=== PATIENT | male | born 1970 | race African-American/Black ===

== ENCOUNTER 2018-03-15 12:33 | Emergency (ER) | payer SELFPAY ==
--- NOTE | 2018-03-15 13:11 | PHYS DOC ---
Adult General Chief Complaint Chief Complaint: SHORTNESS OF BREATH HPI HPI 48-year-old male presents with 4 day history of sore throat and shortness of breath. The patient feels as though his throat is swollen. He said is very difficult to eat food or drink fluids. He also thinks it might be getting somewhat difficult to breathe. Oxygen saturation is normal. The patient denies fever or chills. He has had a recent exposure presents with tonsillitis. The patient denies any allergies. He is also had a cough with dark sputum. The patient is a smoker. Review of Systems Review of Systems Constitutional: Denies fever or chills [] Eyes: Denies change in visual acuity, redness, or eye pain [] HENT: sore throat [] Respiratory: shortness of breath [] Cardiovascular: No additional information not addressed in HPI [] GI: Denies abdominal pain, nausea, vomiting, bloody stools or diarrhea [] : Denies dysuria or hematuria [] Musculoskeletal: Denies back pain or joint pain [] Integument: Denies rash or skin lesions [] Neurologic: Denies headache, focal weakness or sensory changes [] Endocrine: Denies polyuria or polydipsia [] All other systems were reviewed and found to be within normal limits, except as documented in this note. Physical Exam Physical Exam Constitutional: Well developed, well nourished, no acute distress, non-toxic appearance. [] HENT: Normocephalic, atraumatic, bilateral external ears normal, oropharynx moist, no oral exudates, nose normal. [] Eyes: PERRLA, EOMI, conjunctiva normal, no discharge. [] Neck: Significantly swollen anterior cervical lymph nodes, worse on the left. Erythematous posterior pharynx, no exudate seen [] Cardiovascular:Heart rate regular rhythm, no murmur [] Lungs & Thorax: Decreased breath sounds bilaterally[] Abdomen: Bowel sounds normal, soft, no tenderness, no masses, no pulsatile masses. [] Skin: Warm, dry, no erythema, no rash. [] Back: No tenderness, no CVA tenderness. [] Extremities: No tenderness, no cyanosis, no clubbing, ROM intact, no edema. [] Neurologic: Alert and oriented X 3, normal motor function, normal sensory function, no focal deficits noted. [] Psychologic: Affect normal, judgement normal, mood normal. [] EKG EKG Sinus tachycardia, rate 106, normal axis, no ST elevations or depressions.[] Radiology/Procedures Radiology/Procedures CHEST PA LATERAL Clinical indications: Cough with short of breath and fever x 4 days COMPARISON: None available. Findings: No acute lung infiltrate or pleural effusion or pulmonary edema or lung mass or pneumothorax is seen. The heart size, pulmonary vasculature, mediastinum and both jan are unremarkable. The osseous structures appear intact. Impression: No acute radiographic abnormality is seen. Electronically signed by: Ty Johnson MD (03/15/2018 1:43 PM) [facility][] Course & Med Decision Making Course & Med Decision Making Pertinent Labs and Imaging studies reviewed. (See chart for details) The patient's rapid strep was positive. Given his significant swelling, I will treat him with 125 of Solu-Medrol in addition to 2 g of Rocephin in the ED. I will then discharge him with a prescription for penicillin V. His labs are significant for an elevated white count. [] Dragon Disclaimer Dragon Disclaimer This electronic medical record was generated, in whole or in part, using a voice recognition dictation system. Departure Departure: Referrals: PCP,UNKNOWN (PCP) OBED HERNANDEZ DO Mar 15, 2018 13:11
[2018-03-15] MEDS ORDERED: IV NORMAL SALINE 1,000ML 1,000 ML IV ONE (13:15)
[2018-03-15 13:43] LABS: BASO % 0 % (0-3); CALCIUM 8.9 mg/dL (8.5-10.1); CREATININE 1.3 mg/dL (0.7-1.3); EOS # 0.4 x10^3/uL (0.0-0.7); EOS % 3 % (0-3); GFR 58.4; HEMATOCRIT 40.8 % (39.0-53.0); HEMOGLOBIN 13.8 g/dL (13.0-17.5); LYMPH # 1.7 x10^3/uL (1.0-4.8); LYMPH % 11 % (24-48); MEAN CORPUSCULAR HEMOGLOBIN 33 pg (25-35); MEAN CORPUSCULAR HGB CONC 34 g/dL (31-37); MEAN CORPUSCULAR VOLUME 96 fL (79-100); MONO # 1.4 x10^3/uL (0.0-1.1); MONO % 9 % (0-9); NEUT # 11.9 x10^3uL (1.8-7.7); NEUT % 77 % (31-73); PLATELET COUNT 293 x10^3/uL (140-400); POTASSIUM 3.4 mmol/L (3.5-5.1); RED BLOOD COUNT 4.26 x10^6/uL (4.30-5.70); WHITE BLOOD COUNT 15.4 x10^3/uL (4.0-11.0)
[2018-03-15] MEDS ORDERED: methylPREDNISolone SOD SUCC PF 125 MG/2 ML VIAL. IV ONE (13:45)
[2018-03-15] MEDS ORDERED: cefTRIAXone IV Push 1 GM VIAL. IVP ONE (13:45)
--- NOTE | 2018-03-15 13:46 | RAD ---
CHEST PA LATERAL Clinical indications: Cough with short of breath and fever x 4 days COMPARISON: None available. Findings: No acute lung infiltrate or pleural effusion or pulmonary edema or lung mass or pneumothorax is seen. The heart size, pulmonary vasculature, mediastinum and both jan are unremarkable. The osseous structures appear intact. Impression: No acute radiographic abnormality is seen. Electronically signed by: Ty Johnson MD (03/15/2018 1:43 PM) [facility]
--- NOTE | 2018-03-15 13:48 | EKG ---
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
[2018-03-15 14:10] VITALS: BP 200/126
[2018-03-15 14:21] LABS: % BANDS 6 % (0-9); % SEGS 79 % (35-66)
[2018-03-15 14:22] LABS: % BASOS 1 % (0-3); % EOS 1 % (0-5); % LYMPHS 10 % (24-48); % MONOS 3 % (0-10); PLT ESTIMATE ADEQUATE (ADEQUATE)
[2018-03-15] MEDS ORDERED: PENI500T PO (14:22)
== END 2018-03-15 14:29 | disposition home or self-care (01) ==
LOC: ER 12:33
DX: J02.0 Streptococcal pharyngitis (principal); D72.829 Elevated white blood cell count, unspecified
CPT/HCPCS: 36415; 71046; 80048; 85007; 85025; 87880; 93005; 96374; 96375; 99285; J0696; J2930; J7030

== ENCOUNTER 2020-08-05 08:31 | Emergency (ER) | payer OTHER ==
[~2020-08-05] VITALS: Ht 172.7 cm; Wt 115.9 kg
[~2020-08-05 08:31] MED LIST: PENI500T PO
--- NOTE | 2020-08-05 08:47 | PHYS DOC ---
Past History Past Medical History: Diabetes, High Cholesterol, Hypertension Past Surgical History: No Surgical History Alcohol Use: Rarely Drug Use: Cocaine Adult General Chief Complaint Chief Complaint: FATIGUE HPI HPI Patient is a 50-year-old male who presents for fatigue. This was first noticed 1 week ago without any known inciting event or trauma. Nothing known makes better or worse. Patient denies being in any pain, no fevers, no chills, no chest pain, no shortness of breath, no abdominal pain, no changes in bladder or bowel function. He is being treated for diabetes with Metformin, states his sugars when intermittently checked have been fine. Otherwise has been taking all other medications for blood pressure and hypercholesterol without issues. Denies any recent travel or COVID-19 contacts. No focal neurologic deficits noted Review of Systems Review of Systems Fourteen body systems of review of systems have been reviewed. See HPI for pertinent positives and negative responses, other driver all other systems are negative, non-pertinent or non-contributory Allergies Allergies Allergies Coded Allergies Type Severity Reaction Last Updated Verified No Known Drug Allergies 03/15/18 No Physical Exam Physical Exam Constitutional: Well developed, well nourished, no acute distress, non-toxic appearance. Appears fatigued HENT: Normocephalic, atraumatic, bilateral external ears normal, oropharynx moist, no oral exudates, nose normal. Eyes: PERRLA, EOMI, conjunctiva normal, no discharge. Neck: Normal range of motion, no tenderness, supple, no stridor. Cardiovascular: Heart rate regular, sinus rhythm, no murmurs rubs or gallops Lungs & Thorax: Bilateral breath sounds clear to auscultation Abdomen: Bowel sounds normal, soft, no tenderness, no masses, no pulsatile masses. Nonsurgical abdomen, no peritoneal signs Skin: Warm, dry, no erythema, no rash. Back: No tenderness, no CVA tenderness. Extremities: No tenderness, no cyanosis, no clubbing, ROM intact, no edema. Neurologic: Alert and oriented X 3, grossly normal motor & sensory function, no focal deficits noted. Psychologic: Affect normal, judgement normal, mood normal. Current Patient Data Vital Signs Vital Signs Date Time Temp Pulse Resp B/P (MAP) Pulse Ox O2 Delivery O2 Flow Rate FiO2 08/05/20 09:04 97.9 88 18 165/87 (113) 100 EKG EKG EKG ordered and interpreted by myself at 0850 hrs. this sinus rhythm at 67 bpm, unremarkable intervals, no axis deviation, no ischemic findings, no STEMI Radiology/Procedures Radiology/Procedures PROCEDURE: CHEST AP ONLY CHEST AP ONLY History: Fatigue, cough Comparison: March 15, 2018 Findings: Single view of the chest is submitted. There is no infiltrate, pneumothorax, or effusion. The pericardial cardiac silhouette is within normal limits in size. Impression: 1. There is no radiographic evidence of acute cardiopulmonary disease. Electronically signed by: Cole Rivas MD (08/05/2020 9:16 AM) [facility] Heart Score HEART Score for Chest Pain: HEART Score for Chest Pain Response (Comments) Value History Slighlty/Non-Suspicious 0 ECG Normal 0 Age >45 - < 65 1 Risk Factors >3 Risk Factors or Hx CAD 2 Troponin < Normal Limit 0 Total 3 Risk Factors: Risk Factors: DM, Current or recent (<one month) smoker, HTN, HLP, family history of CAD, obesity. Risk Scores: Risk Factors: DM, Current or recent (<one month) smoker, HTN, HLP, family history of CAD, obesity. Course & Med Decision Making Course & Med Decision Making Pertinent Labs and Imaging studies reviewed. (See chart for details) [] Dragon Disclaimer Dragon Disclaimer This electronic medical record was generated, in whole or in part, using a voice recognition dictation system. Departure Departure: Impression: Primary Impression: Fatigue Additional Impression: Rhinorrhea Disposition: 01 DC HOME SELF CARE/HOMELESS Condition: STABLE Referrals: ORLANDO BRUNNER (PCP) Patient Instructions: Fatigue Additional Instructions: As discussed prior to ER departure, please call your primary care physician to schedule outpatient follow-up within upcoming 3 to 7 days time for repeat evaluation As discussed, I have low suspicion for any concerning pathology based on today's comprehensive ER work-up Nonetheless, if any concerning signs or symptoms arise prior to outpatient follow-up please do not hesitate to come back for repeat evaluation and continued diagnostic work-up It was a pleasure to take care of you and I wish you a speedy recovery Scripts Cetirizine Hcl (ZYRTEC) 10 Mg Tablet 1 TAB PO DAILY for rhinorrhea, #30 TAB 2 Refills Prov: DAGOBERTO DOUGLAS DO 08/05/20 Problem Qualifiers DAGOBERTO DOUGLAS DO Aug 05, 2020 08:47
[2020-08-05 09:04] VITALS: BP 165/87
--- NOTE | 2020-08-05 09:19 | RAD ---
CHEST AP ONLY History: Fatigue, cough Comparison: March 15, 2018 Findings: Single view of the chest is submitted. There is no infiltrate, pneumothorax, or effusion. The pericardial cardiac silhouette is within normal limits in size. Impression: 1. There is no radiographic evidence of acute cardiopulmonary disease. Electronically signed by: Cole Rivas MD (08/05/2020 9:16 AM) [facility]
[2020-08-05 09:26] LABS: CREATININE 1.3 mg/dL (0.7-1.3); GFR 70.1; POTASSIUM 3.7 mmol/L (3.5-5.1)
[2020-08-05 09:32] LABS: ALBUMIN 3.5 g/dL (3.4-5.0); ALBUMIN/GLOBULIN RATIO 0.9 (1.0-1.7); TOTAL BILIRUBIN 0.3 mg/dL (0.2-1.0); TOTAL PROTEIN 7.4 g/dL (6.4-8.2)
[2020-08-05 10:16] LABS: BASO % 1 % (0-3); EOS # 0.4 x10^3/uL (0.0-0.7); EOS % 5 % (0-3); HEMOGLOBIN 13.6 g/dL (13.0-17.5); LYMPH # 2.7 x10^3/uL (1.0-4.8); LYMPH % 35 % (24-48); MEAN CORPUSCULAR HEMOGLOBIN 32 pg (25-35); MEAN CORPUSCULAR HGB CONC 33 g/dL (31-37); MEAN CORPUSCULAR VOLUME 96 fL (79-100); MONO # 0.7 x10^3/uL (0.0-1.1); MONO % 9 % (0-9); NEUT % 51 % (31-73); PLATELET COUNT 224 x10^3/uL (140-400); RED BLOOD COUNT 4.25 x10^6/uL (4.30-5.70); RED CELL DISTRIBUTION WIDTH 13.4 % (11.5-14.5); WHITE BLOOD COUNT 7.9 x10^3/uL (4.0-11.0)
--- NOTE | 2020-08-05 10:38 | EKG ---
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
[2020-08-05 11:10] LABS: BACTERIA,URINE 0 /HPF (0-FEW); BILIRUBIN,URINE NEG (NEG); CLARITY,URINE CLEAR; COLOR,URINE YELLOW; GLUCOSE,URINE NEG (NEG); HYALINE CASTS, URINE OCC /HPF; NITRITE,URINE NEG (NEG); RBC,URINE 0 /HPF (0-2); SQUAMOUS EPITHELIAL CELL,UR OCC /LPF; UROBILINOGEN,URINE 0.2 mg/dL (0.2 mg/dL); WBC,URINE 0 /HPF (0-4)
[2020-08-05] MEDS ORDERED: CETIRIZINE HCL 10 MG TABLET ONE (11:38)
[2020-08-05] MEDS ORDERED: CETI10TA74 PO (11:48)
== END 2020-08-05 11:59 | disposition home or self-care (01) ==
LOC: ER 08:31
DX: J34.89 Other specified disorders of nose and nasal sinuses (principal); R53.83 Other fatigue; E11.9 Type 2 diabetes mellitus without complications; E78.00 Pure hypercholesterolemia, unspecified; I10 Essential (primary) hypertension; F14.90 Cocaine use, unspecified, uncomplicated
CPT/HCPCS: 36415; 71045; 80053; 81001; 84484; 85025; 93005; 99285

== ENCOUNTER 2020-12-28 16:57 | Emergency (ER) | payer SELFPAY ==
[~2020-12-28] VITALS: Ht 172.7 cm; Wt 115.9 kg
[~2020-12-28 16:57] MED LIST changes: +CETI10TA74 PO
[2020-12-28 17:00] VITALS: BP 134/83
--- NOTE | 2020-12-28 17:25 | PHYS DOC ---
Past History Past Medical History: Diabetes, High Cholesterol, Hypertension Past Surgical History: No Surgical History Alcohol Use: Rarely Drug Use: Cocaine Adult General Chief Complaint Chief Complaint: HYPOTENSION HPI HPI Patient is a 50-year-old male who presents to the emergency department claiming his called the [facility] clinic and was advised she needed to take her to the emergency department for low blood pressures at home. Patient denies any current physical complaints or physical concerns, patient states that he does not need to be here in the emergency department today, patient states he is upset that his brought him here to the emergency department. Patient denies any current problems. Patient wishes to leave the emergency department and not be seen by an ED provider. Patient is asking to leave without being worked up in the ER today. Review of Systems Review of Systems 14 body systems of review of systems have been reviewed. See HPI for pertinent positives and negative responses, otherwise all other systems are negative, nonpertinent or noncontributory. Limited ROS related to patient not wanted to be seen in the emergency department today. Allergies Allergies Allergies Coded Allergies Type Severity Reaction Last Updated Verified No Known Drug Allergies 12/28/20 No Physical Exam Physical Exam Constitutional: Well developed, well nourished, no acute distress, non-toxic appearance. 50-year-old male in no apparent distress, patient is refusing physical examination at this time. Patient states if he feels he does have an emergency condition he will return to the emergency department immediately. HENT: Normocephalic, appears atraumatic, bilateral external ears appear normal, no drooling, no trismus. Eyes: Conjunctive appear normal, there is no discharge, patient tracking well. Neck: Patient moving head and neck without apparent discomfort. Cardiovascular: Not assessed, patient does not appear hypoxic Lungs & Thorax: Not assessed with auscultation, patient is in no apparent respiratory distress. Abdomen: Not assessed, abdomen appears flat. Skin: Not fully assessed, patient is closed, exposed skin does not appear to have any rashes or abnormalities. Back: Not assessed, patient does not appear to be having any back pain. Extremities: Not fully assessed, patient is moving all extremities well. Neurologic: Alert and oriented X 3, normal motor function, normal sensory function, no focal deficits appreciated, patient would not allow full exa mination. Psychologic: Affect normal, judgement normal, mood normal. Patient agitated in appearance, denies homicidal or suicidal ideation. Current Patient Data Vital Signs Vital Signs Date Time Temp Pulse Resp B/P (MAP) Pulse Ox O2 Delivery O2 Flow Rate FiO2 12/28/20 17:00 98.1 76 16 134/83 (100) 98 Room Air Lab Results Laboratory Tests Test 12/28/20 17:06 Glucose (Fingerstick) 157 mg/dL (70-99) H EKG EKG [] Radiology/Procedures Radiology/Procedures [] Heart Score C/O Chest Pain: No Risk Factors: Risk Factors: DM, Current or recent (<one month) smoker, HTN, HLP, family history of CAD, obesity. Risk Scores: Risk Factors: DM, Current or recent (<one month) smoker, HTN, HLP, family history of CAD, obesity. Course & Med Decision Making Course & Med Decision Making Pertinent Labs and Imaging studies reviewed. (See chart for details) 50-year-old male, vital signs reviewed, presents to the emergency department with , patient is refusing emergency department medical examination, patient eloped from emergency department prior to full emergency department provider examination. Patient did state he would return to the emergency department if he feels he needs a emergency department evaluation. Patient left the emergency department ambulatory prior to completion of medical evaluation. Dragon Disclaimer Dragon Disclaimer This electronic medical record was generated, in whole or in part, using a voice recognition dictation system. Departure Departure: Impression: Primary Impression: Eloped from emergency department Disposition: 07 AMA/ELOPED/LWBS Condition: STABLE Referrals: ORLANDO BRUNNER (PCP) IVONE MANCILLA APRN Dec 28, 2020 17:24
== END 2020-12-28 17:20 | disposition left against medical advice (07) ==
LOC: ER 16:57
DX: I95.9 Hypotension, unspecified (principal); E11.9 Type 2 diabetes mellitus without complications; E78.00 Pure hypercholesterolemia, unspecified; I10 Essential (primary) hypertension
CPT/HCPCS: 82947; 99283

== ENCOUNTER 2021-04-13 10:42 | Emergency (ER) | payer SELFPAY ==
[~2021-04-13] VITALS: Ht 172.7 cm; Wt 115.9 kg
[2021-04-13 10:49] VITALS: BP 134/73
[2021-04-13 12:04] LABS: BASO # 0.1 x10^3/uL (0.0-0.2); BASO % 1 % (0-3); EOS # 0.2 x10^3/uL (0.0-0.7); EOS % 3 % (0-3); HEMATOCRIT 36.7 % (39.0-53.0); HEMOGLOBIN 12.4 g/dL (13.0-17.5); LYMPH # 2.8 x10^3/uL (1.0-4.8); LYMPH % 33 % (24-48); MEAN CORPUSCULAR HEMOGLOBIN 33 pg (25-35); MEAN CORPUSCULAR HGB CONC 34 g/dL (31-37); MEAN CORPUSCULAR VOLUME 97 fL (79-100); MONO # 0.9 x10^3/uL (0.0-1.1); MONO % 10 % (0-9); NEUT # 4.6 x10^3uL (1.8-7.7); NEUT % 53 % (31-73); PLATELET COUNT 258 x10^3/uL (140-400); RED BLOOD COUNT 3.78 x10^6/uL (4.30-5.70); RED CELL DISTRIBUTION WIDTH 13.2 % (11.5-14.5); WHITE BLOOD COUNT 8.6 x10^3/uL (4.0-11.0)
[2021-04-13 12:16] LABS: CALCIUM 9.5 mg/dL (8.5-10.1); CREATININE 1.6 mg/dL (0.7-1.3); POTASSIUM 3.7 mmol/L (3.5-5.1)
--- NOTE | 2021-04-13 12:17 | RAD ---
EXAMINATION: XR CHEST 1V CLINICAL HISTORY: Dizziness EXAM DATE/TIME: 04/13/2021 11:35 AM COMPARISON: 08/05/2020 FINDINGS: Lines, Tubes, and Devices: None. Cardiomediastinal Silhouette: Within normal limits. Lungs and Pleura: No evidence of focal airspace consolidation or pleural effusion. Pulmonary vasculat ure unremarkable. Bones and Soft Tissues: Degenerative changes of the thoracic spine. IMPRESSION: No evidence of acute cardiopulmonary abnormality or significant interval change. Electronically signed by: Harsha Matthews DO (04/13/2021 12:14 PM) [id number]
[2021-04-13 12:22] LABS: ALBUMIN 3.9 g/dL (3.4-5.0); ALBUMIN/GLOBULIN RATIO 1.1 (1.0-1.7); TOTAL BILIRUBIN 0.4 mg/dL (0.2-1.0); TOTAL PROTEIN 7.3 g/dL (6.4-8.2)
[2021-04-13] MEDS: IV NORMAL SALINE 1,000ML 1,000 ML IV ONE (13:15)
--- NOTE | 2021-04-13 13:31 | PHYS DOC ---
Past History Past Medical History: Diabetes, High Cholesterol, Hypertension (MIKE ALARCON APRN) Past Surgical History: No Surgical History (MIKE ALARCON APRN) Alcohol Use: Rarely Drug Use: Cocaine (MIKE ALARCON APRN) General Adult EDM: Chief Complaint: DIZZY/LIGHT HEADED HPI: HPI: Patient is a 51-year-old male who presents to the ER today for lightheadedness that has been going on intermittently for the last couple of weeks only with position changes. Patient reports that he had 2 syncopal episodes in the last 2 weeks. He was also seen at a year ago and diagnosed with a TIA. Patient reports that today he stood up and felt lightheaded but never passed out. He denies falling, hitting his head, or loss of consciousness. Patient denies headache, currently feeling lightheaded, vision changes, nausea, vomiting, chest pain, shortness of breath, lightheadedness worse with head movements, tinnitus, lightheadedness worse with eye movements, he denies any feeling of him or his surroundings spinning. Patient is currently sleeping on ER cot. (MIKE ALARCON APRN) Review of Systems: Review of Systems: 14 body systems of the review of systems have been reviewed. See HPI for pertinent positive and negative responses, otherwise all other systems are negat mich, nonpertinent or noncontributory (MIKE ALARCON APRN) Current Medications: Current Meds: Current Medications Medications (Trade) Dose Ordered Sig/Jaime Start Time Stop Time Status Last Admin Dose Admin Sodium Chloride 1,000 ml @ 1,000 mls/hr 1X ONCE 04/13/21 13:15 04/13/21 14:14 (MIKE ALARCON APRN) Allergies: Allergies: Allergies Coded Allergies Type Severity Reaction Last Updated Verified No Known Drug Allergies 12/28/20 No (MIKE ALARCON APRN) Physical Exam: PE: Constitutional: Well developed, well nourished, no acute distress, non-toxic appearance. [] HENT: Normocephalic, atraumatic, bilateral external ears normal, oropharynx moist, no oral exudates, nose normal. [] Eyes: PERRLA, EOMI, conjunctiva normal, no discharge, ocular eye movement does not cause patient any dizziness. [] Neck: Normal range of motion, supple, no stridor. [] Cardiovascular:Heart rate regular rhythm, no murmur [] Lungs & Thorax: Bilateral breath sounds clear to auscultation [] Abdomen: Bowel sounds normal, soft, no tenderness, no masses, no pulsatile masses. [] Skin: Warm, dry, no erythema, no rash. [] [] Extremities: No tenderness, no cyanosis, no clubbing, ROM intact, no edema. [] Neurologic: Alert and oriented X 3, normal motor function with equal strength of bilateral upper and lower extremities, normal sensory function, no focal deficits noted. [] Psychologic: Affect normal, judgement normal, mood normal. [] (MIKE ALARCON APRN) Current Patient Data: Labs: Laboratory Tests Test 04/13/21 11:39 White Blood Count 8.6 x10^3/uL Red Blood Count 3.78 x10^6/uL Hemoglobin 12.4 g/dL Hematocrit 36.7 % Mean Corpuscular Volume 97 fL Mean Corpuscular Hemoglobin 33 pg Mean Corpuscular Hemoglobin Concent 34 g/dL Red Cell Distribution Width 13.2 % Platelet Count 258 x10^3/uL Neutrophils (%) (Auto) 53 % Lymphocytes (%) (Auto) 33 % Monocytes (%) (Auto) 10 % Eosinophils (%) (Auto) 3 % Basophils (%) (Auto) 1 % Neutrophils # (Auto) 4.6 x10^3uL Lymphocytes # (Auto) 2.8 x10^3/uL Monocytes # (Auto) 0.9 x10^3/uL Eosinophils # (Auto) 0.2 x10^3/uL Basophils # (Auto) 0.1 x10^3/uL Sodium Level 144 mmol/L Potassium Level 3.7 mmol/L Chloride Level 106 mmol/L Carbon Dioxide Level 31 mmol/L Anion Gap 7 Blood Urea Nitrogen 15 mg/dL Creatinine 1.6 mg/dL Estimated GFR (Cockcroft-Gault) 55.0 BUN/Creatinine Ratio 9 Glucose Level 115 mg/dL Calcium Level 9.5 mg/dL Total Bilirubin 0.4 mg/dL Aspartate Amino Transf (AST/SGOT) 26 U/L Alanine Aminotransferase (ALT/SGPT) 43 U/L Alkaline Phosphatase 78 U/L Troponin I Quantitative < 0.017 ng/mL Total Protein 7.3 g/dL Albumin 3.9 g/dL Albumin/Globulin Ratio 1.1 Current Medications Medications (Trade) Dose Ordered Sig/Jaime Route PRN Reason Start Time Stop Time Status Last Admin Dose Admin Sodium Chloride 1,000 ml @ 1,000 mls/hr 1X ONCE IV 04/13/21 13:15 04/13/21 13:49 DC Laboratory Tests Test 04/13/21 11:39 White Blood Count 8.6 x10^3/uL (4.0-11.0) Red Blood Count 3.78 x10^6/uL (4.30-5.70) L Hemoglobin 12.4 g/dL (13.0-17.5) L Hematocrit 36.7 % (39.0-53.0) L Mean Corpuscular Volume 97 fL (79-100) Mean Corpuscular Hemoglobin 33 pg (25-35) Mean Corpuscular Hemoglobin Concent 34 g/dL (31-37) Red Cell Distribution Width 13.2 % (11.5-14.5) Platelet Count 258 x10^3/uL (140-400) Neutrophils (%) (Auto) 53 % (31-73) Lymphocytes (%) (Auto) 33 % (24-48) Monocytes (%) (Auto) 10 % (0-9) H Eosinophils (%) (Auto) 3 % (0-3) Basophils (%) (Auto) 1 % (0-3) Neutrophils # (Auto) 4.6 x10^3uL (1.8-7.7) Lymphocytes # (Auto) 2.8 x10^3/uL (1.0-4.8) Monocytes # (Auto) 0.9 x10^3/uL (0.0-1.1) Eosinophils # (Auto) 0.2 x10^3/uL (0.0-0.7) Basophils # (Auto) 0.1 x10^3/uL (0.0-0.2) Sodium Level 144 mmol/L (136-145) Potassium Level 3.7 mmol/L (3.5-5.1) Chloride Level 106 mmol/L (98-107) Carbon Dioxide Level 31 mmol/L (21-32) Anion Gap 7 (6-14) Blood Urea Nitrogen 15 mg/dL (8-26) Creatinine 1.6 mg/dL (0.7-1.3) H Estimated GFR (Cockcroft-Gault) 55.0 BUN/Creatinine Ratio 9 (6-20) Glucose Level 115 mg/dL (70-99) H Calcium Level 9.5 mg/dL (8.5-10.1) Total Bilirubin 0.4 mg/dL (0.2-1.0) Aspartate Amino Transferase (AST) 26 U/L (15-37) Alanine Aminotransferase (ALT) 43 U/L (16-63) Alkaline Phosphatase 78 U/L (46-116) Troponin I Quantitative < 0.017 ng/mL (0-0.055) Total Protein 7.3 g/dL (6.4-8.2) Albumin 3.9 g/dL (3.4-5.0) Albumin/Globulin Ratio 1.1 (1.0-1.7) Vital Signs: Vital Signs Date Time Temp Pulse Resp B/P (MAP) Pulse Ox O2 Delivery O2 Flow Rate FiO2 04/13/21 10:49 98.1 75 20 134/73 (93) 99 (MIKE ALARCON LINE SERVICER) EKG: EKG: An EKG was performed at 1120 which showed sinus rhythm with no specific EKG abnormalities, no STEMI read by Dr. Moss at 1134 (MIKE ALARCON APRN) Radiology/Procedures: Radiology/Procedures: PROCEDURE: CHEST AP ONLY EXAMINATION: XR CHEST 1V CLINICAL HISTORY: Dizziness EXAM DATE/TIME: 04/13/2021 11:35 AM COMPARISON: 08/05/2020 FINDINGS: Lines, Tubes, and Devices: None. Cardiomediastinal Silhouette: Within normal limits. Lungs and Pleura: No evidence of focal airspace consolidation or pleural effusion. Pulmonary vasculature unremarkable. Bones and Soft Tissues: Degenerative changes of the thoracic spine. IMPRESSION: No evidence of acute cardiopulmonary abnormality or significant interval change. Electronically signed by: Harsha Coleman DO (04/13/2021 12:14 PM) [id number] DICTATED AND SIGNED BY: HARSHA COLEMAN DO DATE: 04/13/21 1213 CC: ORLANDO BRUNNER; DAGOBERTO DOUGLAS DO ~MTH0 0 (MIKE ALARCON APRN) Heart Score: C/O Chest Pain: No Risk Factors: Risk Factors: DM, Current or recent (<one month) smoker, HTN, HLP, family history of CAD, obesity. Risk Scores: Score 0 - 3: 2.5% MACE over next 6 weeks - Discharge Home Score 4 - 6: 20.3% MACE over next 6 weeks - Admit for Clinical Observation Score 7 - 10: 72.7% MACE over next 6 weeks - Early Invasive Strategies (MIKE ALARCON APRN) Course & Med Decision Making: Course & Med Decision Making Patient is a 51-year-old male being seen in the ER today for lightheadedness that occurs only with position changes has been going on for the last 2 weeks. His work-up today included CBC, CMP, EKG, orthostatic vital signs, and chest x- ray. Labs were negative for any acute findings. His hemoglobin was 12.7 and his hematocrit was 36.7, his blood glucose was 115. Orthostatic vital signs were obtained in the ER and they were negative for orthostasis. Chest x-ray was negative for any acute findings. His EKG was sinus rhythm with no EKG abnormalities. Patient was offered IV fluids in the ER which he declined stating "I just want to go home". Patient was road tested in the ER and was ambulatory without any dizziness with steady gait. Patient's case was discussed with supervising physician. Patient educated on results in the ER and was agreeable to plan of care. [] (MIKE ALARCON APRN) Course & Med Decision Making I oversaw on the above date of service of this patient. This patient was evaluated, examined, treated, and dispositioned from the emergency department by the mid-level practitioner. I reviewed the case and directed the care of the patient while in ER prior to departure. I reviewed note and agree to findings, plan of care, and disposition as stated. Electronically signed, Dagoberto Douglas DO (DAGOBERTO DOUGLAS DO) Heavenly Disclaimer: Heavenly Disclaimer: This electronic medical record was generated, in whole or in part, using a voice recognition dictation system. (MIKE ALARCON APRN) Departure Departure: Impression: Primary Impression: Near syncope Disposition: HOME / SELF CARE / HOMELESS Condition: STABLE Referrals: ORLANDO BRUNNER (PCP) Additional Instructions: Thank you for choosing [facility] [place] and allowing me to participate in your care. You were seen in the ER today for lightheadedness that occurs with position changes. You had blood work, EKG, chest x-ray performed that was negative for any acute findings. Your blood sugar today was 115, please continue to monitor your blood sugars at home. You were offered fluids and an IV but declined. Please continue to push oral hydration. Please follow up with your primary care provider tomorrow regarding your ER visit. If your symptoms worsen or you develop increased dizziness, nausea, vomiting, chest pain, shortness of breath, severe headache, vision changes, or you pass out please return. EMERGENCY DEPARTMENT GENERAL DISCHARGE INSTRUCTIONS Thank you for coming to [facility] (ED) today and trusting us with you care. We trust that you had a positivie experience in our Emergency Department. If you wish to speak to the department management, you may call the director at [phone]. YOUR FOLLOW UP INSTRUCTIONS ARE FOLLOWS: 1. Do you have a private Doctor? If you do not have a private doctor, please ask for a resource list of physicians or clinics that may be able to assist you with follow up care. 2. The Emergency Physician has interpreted your x-rays. The X-Ray specialist will also review them. If there is a change in the findings, you will be notified in 48 hours when at all possible. 3. A lab test or culture has been done, your results will be reviewed and you will be notified if you need a change in treatment. ADDITIONAL INSTRUCTIONS AND INFORMATION: 1. Your care today has been supervised by a physician who is specially trained in emergency care. Many problems require more than one evaluation for a complete diagnosis and treatment. We recommend that you schedule your follow up appointment as recommended to ensure complete treatment of you illness or injury. If you are unable to obtain follow up care and continue to have a problem, or if your condition worsens, we recommend that you return to the ED. 2. We are not able to safely determine your condition over the phone nor are we able to give sound medical advice over the phone. For these safety reasons, if you call for medical advice we will ask you to come to the ED for further evaluation. 3. If you have any questions regarding these discharge instructions please call the ED at [phone]. SAFETY INFORMATION: In the interest of safety, wellness, and injury prevention; we encourage you to wear your sealbelt, if you smoke; quite smoking, and we encourage family to use a protective helmet for bicycling and other sporting events that present an increased risk for head injury. IF YOUR SYMPTOMS WORSEN OR NEW SYMPTOMS DEVELOP, OR YOU HAVE CONCERNS ABOUT YOUR CONDITION; OR IF YOUR CONDITION WORSENS WHILE YOU ARE WAITING FOR YOUR FOLLOW UP APPOINTMENT; EITHER CONTACT YOUR PRIMARY CARE DOCTOR, THE PHYSICIAN WHOSE NAME AND NUMBER YOU WERE GIVEN, OR RETURN TO THE ED IMMEDIATELY. MIKE ALARCON APRN Apr 13, 2021 13:31 DAGOBERTO DOUGLAS DO Apr 14, 2021 06:51
--- NOTE | 2021-04-13 20:16 | EKG ---
[address] [address] Test Date: 2021-04-13 Test Time: 11:20:29 Pat Name: AP ORTIZ Department: Room: Gender: M Incident Manager: JESU : [id number] Requested By: DAGOBERTO DOUGLAS Order Number: [id number] Reading MD: Measurements Intervals [place] Rate: 71 P: 59 [place]: 164 QRS: 32 QRSD: 84 T: 23 QT: 392 QTc: 431 Interpretive Statements SINUS RHYTHM NO SPECIFIC ECG ABNORMALITIES RI6.02 No previous ECG available for comparison
== END 2021-04-13 13:44 | disposition home or self-care (01) ==
LOC: ER 10:42
DX: R55 Syncope and collapse (principal); R42 Dizziness and giddiness; E11.9 Type 2 diabetes mellitus without complications; E78.5 Hyperlipidemia, unspecified; I10 Essential (primary) hypertension
CPT/HCPCS: 36415; 71045; 80053; 84484; 85025; 93005; 99285-25